=== PATIENT | male | born 1985 | race Caucasian/White ===

== ENCOUNTER 2025-06-05 08:36 | Emergency (ER) | payer BC, SELFPAY ==
--- NOTE | ~2025-06-05 | XR_ITS ---
Examination: XR chest 2V Clinical History: cough, SOB x6 days Comparison: None Technique: PA and Lateral Findings: Cardiomediastinal silhouette normal size and configuration. Lungs clear. No acute bony abnormality. IMPRESSION: 1. No acute cardiopulmonary findings. Reviewed, dictated and finalized at location [facility]
[2025-06-05 08:49] VITALS: BP 147/80; PULSE 86; RESP 20; TEMP 36.6; O2SAT 100
--- NOTE | 2025-06-05 09:32 | ED.URI ---
HPI - URI/Sore Throat General Chief Complaint: Upper Respiratory Infection Stated Complaint: URI Time Seen by Provider: 06/05/25 09:25 Source: patient and RN notes reviewed Mode of arrival: ambulatory Limitations: no limitations History of Present Illness HPI Narrative: 39-year-old male patient presents today complaining a 6 day history severe coughing episodes, nasal congestion, and occasional shortness of breath exertion. Denies fever, sore throat. He has been taking egrk-wrt-ewerpaq cough medicine with some mild relief. Related Data Allergies Allergy/AdvReac Type Severity Reaction Status Date / Time Penicillins Allergy Severe Anaphylaxis Verified 06/05/25 09:34 codeine Allergy Intermediate Vomiting Verified 06/05/25 09:34 [facility] Comments At time of signature, I have reviewed and agree with nursing past medical, surgical, social and family history unless otherwise noted. Please see nursing chart for further information. There is no relevant family history pertinent to the presenting complaint Exam Narrative: GENERAL: Mildly ill-appearing, well-nourished, and in no acute distress. HEAD: Normocephalic, atraumatic. EYES: EOMI. No redness or drainage. Conjunctivae normal. ENT: Mucous membranes pink and moist. Nares severely congested rhinorrhea. TMs normal bilaterally. Throat normal. Uvula midline. NECK: Normal AROM. Supple. No lymphadenopathy. CHEST: No respiratory distress. Fine crackles in the right lower lobe, otherwise clear HEART: Regular rate and rhythm. No murmur appreciated. EXTREMITIES: Normal range of motion. No edema. SKIN: Warm, dry, no rash. Capillary refill normal. Normal skin turgor. NEURO: No focal deficits. Alert and oriented x3. Gait steady. PSYCH: Normal affect. No signs of depression or anxiety. Course Course Level of Care: Express Care Visit Vital Signs Vital signs: Vital Signs Temperature 97.8 F 06/05/25 08:49 Pulse Rate 86 06/05/25 08:49 Respiratory Rate 20 06/05/25 08:49 Blood Pressure 147/80 H 06/05/25 08:49 Pulse Oximetry 100 06/05/25 08:49 Oxygen Delivery Room Air 06/05/25 08:49 Temperature 97.8 F 06/05/25 08:49 Pulse Rate 86 06/05/25 08:49 Respiratory Rate 20 06/05/25 08:49 Blood Pressure 147/80 H 06/05/25 08:49 Pulse Oximetry 100 06/05/25 08:49 Oxygen Delivery Room Air 06/05/25 08:49 Reviewed MDM - URI/Sore Throat MDM Narrative Medical decision making narrative: 39-year-old male patient presents today complaining a 6 day history severe coughing episodes, nasal congestion, and occasional shortness of breath exertion. Denies fever, sore throat. He has been taking wzan-kwl-xphqswf cough medicine with some mild relief. Upon exam, patient is mildly ill appearing with nasal congestion and fine crackles in the right lower lobe. Chest x-ray negative. Symptoms likely viral in etiology. Discussed [id number] medication use and duration of illness. Anticipatory guidance given. Patient will be started on a prednisone burst and some Tessalon Perles for his bronchitis. Agrees with plan. Differential Diagnosis Differential diagnosis: Likely upper respiratory infection, bronchitis and other (Pneumonia) Imaging Data Radiologist's impression: ITS Impressions Chest X-Ray 06/05/25 09:46 IMPRESSION: 1. No acute cardiopulmonary findings. Critical Care Time Critical Care Time Critical Care Time: No Discharge Plan Discharge Clinical Impression: Bronchitis Patient Disposition: Home Condition: Stable Instructions: Acute Bronchitis (ED) Additional Instructions: Your chest x-ray is negative for pneumonia. Your bronchitis is likely due to a viral illness, which is not treated with antibiotics. Please take the prednisone and Tessalon Perles as directed. Rest and drink plenty of fluids. Follow-up with your PCP in 3-4 days if symptoms are not improving. Go to the ER immediately if symptoms worsen. Patient Language: Montenegrin Prescriptions: New benzonatate 200 mg capsule 200 mg PO TID PRN (Reason: cough) Qty: 20 0RF prednisone 50 mg tablet 50 mg PO DAILY 5 Days Qty: 5 0RF Follow-up/Referrals: UNKNOWN,DOCTOR [Primary Care Provider] Stand Alone Forms: Work/School Release IP Time of Disposition: 10:11
== END 2025-06-05 10:33 | disposition home or self-care (01) ==
PROVIDERS: Emergency Provider Nurse Practitioner
DX: J40 Bronchitis, not specified as acute or chronic (principal)
CPT/HCPCS: 71046; 99203; G0463